=== PATIENT | female | born 1975 ===

== ENCOUNTER 2024-12-08 09:15 | Inpatient (IN) | payer OTHER ==
[~2024-12-08] VITALS: Ht 167.6 cm; Wt 77.6 kg
[2024-12-08 11:47] LABS: BASO % 0.7 % (0.1-1.2); EOS # 0.25 (0.04-0.54); EOS % 3.5 % (0.7-7.0); LYMPH # 2.97 (1.18-3.74); LYMPH % 41.8 % (19.3-53.1); MEAN PLATELET VOLUME 10.50 fl (9.4-12.4); MONO # 0.44 (0.24-0.82); MONO % 6.2 % (4.7-12.5); NEUT # 3.38 (1.56-6.13); NEUT % 47.5 % (34.0-71.1); RED CELL DISTRIBUTION WIDTH 12.9 % (11.6-14.4)
[2024-12-08 11:57] LABS: URINE APPEARANCE Clear; URINE BILIRRUBIN Negative (NEGATIVE); URINE BLOOD Negative; URINE COLOR Yellow; URINE GLUCOSE Negative (NEGATIVE); URINE KETONE Negative (NEGATIVE); URINE LEUKOCYTE Negative; URINE NITRATE Negative; URINE PROTEIN Negative (NEGATIVE); URINE UROBILINOGEN 0.2 E.U./dl
[2024-12-08 12:01] LABS: URINE BACTERIA 913.1 uL (0.0-1933); URINE EPITHELIAL CELLS 11.0 uL (0.0-38.8); URINE RBC 7.0 uL (0.0-20.8); URINE WBC 4.6 uL (0.0-23.2)
[2024-12-08 12:04] LABS: URINE CAST 0.58 uL (0.0-1.40)
[2024-12-08 12:22] LABS: INR 1.0
[2024-12-08 13:04] LABS: ALT/SGPT 31.0 U/L (12-78); AST/SGOT 19.0 U/L (15-37); BILIRUBIN TOTAL 0.44 mg/dL (0.3-1.2); BUN CREA RATIO 25.0 (7.0-25.0); CREATININE SERUM 0.56 mg/dL (0.55-1.02); GFR 114.13; GLOBULINA 3.6 G/DL (2.4-3.5); GLUCOSE FASTING 93.0 mg/dL (65-100); OSMOLALITY SERUM 283.0 MOSM/KG (275-295)
[2024-12-08] MEDS ORDERED: MULTIPLE VITAM1 EAC2 PO (13:16)
[2024-12-08 13:17] VITALS: BP 127/79
[2024-12-12] MEDS ORDERED: CEFAZOLIN SODIUM 1,000 MG VIAL IV ONE (12:30)
[2024-12-12] MEDS ORDERED: HEMOSTATIC MATRIX 1 KIT KIT TOP ONE ×2 (13:00)
[2024-12-12] MEDS ORDERED: SURGIFLO APPLICATOR 1 EACH APPL TOP ONE (13:00)
[2024-12-12] MEDS ORDERED: MORPHINE SULFATE 4 MG/ML CARTRIDGE IV SCH (13:17)
[2024-12-12] MEDS ORDERED: MORPHINE SULFATE 4 MG/ML VIAL IV ONE ×2 (14:30→18:45)
[2024-12-12] MEDS ORDERED: PROMETHAZINE HCL 25 MG/ML AMPUL IV SCH (16:00)
[2024-12-12] MEDS ORDERED: ONDANSETRON HCL 2 MG/ML VIAL IV ONE (18:55)
[2024-12-12 19:06] LABS: BASO % 0.3 % (0.1-1.2); EOS # 0.09 (0.04-0.54); EOS % 0.6 % (0.7-7.0); LYMPH # 2.36 (1.18-3.74); LYMPH % 16.7 % (19.3-53.1); MEAN PLATELET VOLUME 10.10 fl (9.4-12.4); MONO # 0.63 (0.24-0.82); MONO % 4.5 % (4.7-12.5); NEUT # 10.96 (1.56-6.13); NEUT % 77.7 % (34.0-71.1); RED CELL DISTRIBUTION WIDTH 12.6 % (11.6-14.4)
[2024-12-12 19:19] VITALS: BP 136/85
[2024-12-12] MEDS ORDERED: TRAMADOL HCL 50 MG TABLET PO SCH (20:00)
[2024-12-12] MEDS ORDERED: GABAPENTIN 600 MG TABLET PO SCH (21:00)
[2024-12-12] MEDS ORDERED: FAMOTIDINE/PF 20 MG/2 ML VIAL IV SCH (21:00)
[2024-12-12] MEDS ORDERED: GABAPENTIN 300 MG CAPSULE PO SCH (21:00)
[2024-12-12] MEDS ORDERED: SIMETHICONE 125 MG CAPSULE PO SCH (21:00)
[2024-12-12] MEDS ORDERED: DIPHENHYDRAMINE HCL 50 MG/ML VIAL 1ML IV ONE (21:15)
[2024-12-13] VITALS: BP 108/68
[2024-12-13] MEDS ORDERED: TRAMADOL HCL50 MG PO ×2 (06:50→06:57)
[2024-12-13] MEDS ORDERED: GABAPENTIN300 MG PO ×2 (06:50→06:57)
[2024-12-13] MEDS ORDERED: SIMETHICONE125 M1 PO ×2 (06:51→06:57)
[2024-12-13 08:11] VITALS: BP 128/76
== END 2024-12-13 10:40 | disposition home or self-care (01) | DRG 743 ==
LOC: SURH 12-12 09:15 → O/R 12-12 10:10 → OB/GYN 12-12 10:10
PROVIDERS: ADMIT Obstetrics & Gynecology; ATTEND Obstetrics & Gynecology
PROC: 0UT7FZZ Resection of Bilateral Fallopian Tubes, Via Natural or Artificial Opening With Percutaneous Endoscopic Assistance (ICD-10-PCS; 2024-12-12)
PROC: 0UT9FZZ Resection of Uterus, Via Natural or Artificial Opening With Percutaneous Endoscopic Assistance (ICD-10-PCS; principal; 2024-12-12 08:30)
DX: D25.1 Intramural leiomyoma of uterus (principal); D25.2 Subserosal leiomyoma of uterus; N85.02 Endometrial intraepithelial neoplasia [EIN]